=== PATIENT | male | born 2000 | race Caucasian/White ===

== ENCOUNTER 2020-01-11 11:17 | Emergency (ER) | payer BC ==
[2020-01-11 11:34] VITALS: BP 106/61
--- NOTE | 2020-01-11 11:39 | UC ---
Respiratory Complaint HPI - HPI Summary HPI Summary: 19yo male presenting with mother for dry cough and shortness of breath x2 days. Mother states "his lungs sound diminished and there is wheezing everywhere with crackles at lung bases." Patient denies chest pain. Does admit to wheezing. Denies URI symptoms. Denies fever, chills, body aches. Denies n/v. Has been using his inhaler a few times a day and nebulizer twice yesterday. Patient has a h/o asthma. Also notes having pneumonia and bronchitis in the past. Mother states "his primary usually gives him steroids and a z isaias." Nonsmoker - History of Current Complaint Stated Complaint: CONGESTION COUGH Hx Obtained From: Patient, Family/Reimbursement Rep - mother Pain Intensity: 0 - Allergies/Home Medications Allergies/Adverse Reactions: Allergies Allergy/AdvReac Type Severity Reaction Status Date / Time No Known Allergies Allergy Verified 01/11/20 11:30 Home Medications: Home Medications Albuterol HFA INHALER* [Ventolin HFA Inhaler*] 2 inh PO Q4H PRN 10/01/13 [ History Confirmed 01/11/20] Albuterol 2.5MG/3ML (0.083%)* [Ventolin 2.5 MG/3 ML NEB.JESIKA*] 2.5 mg INH Q4H PRN 01/11/20 [History Confirmed 01/11/20] Albuterol 2.5MG/3ML (0.083%)* [Ventolin 2.5 MG/3 ML NEB.JESIKA*] 2.5 mg INH Q6H PRN #25 vial 01/11/20 [Rx] Albuterol HFA INHALER* [Ventolin HFA Inhaler*] 2 puff INH Q4H PRN #1 mdi [Rx] Azithromyxin ISAIAS (NF) [Z-Isaias (Zithromax) 250 mg tabs #6] 2 tab PO .TODAY, THEN 1 DAILY #6 tab 01/11/20 [Rx] predniSONE 20 mg TAB [Deltasone 20 MG TAB*] 40 mg PO DAILY #10 tab 01/11/20 [Rx] PMH/Surg Hx/FS Hx/Imm Hx Respiratory History: Asthma, Bronchitis, Pneumonia - Surgical History Surgical History: Yes Surgery Procedure, Year, and Place: ear tubes, left leg surgery-2015. R wrist surgery - Family History Known Family History: Positive: Non-Contributory - Social History Alcohol Use: Occasionally Substance Use Type: None Smoking Status (MU): Never Smoked Tobacco - Immunization History Vaccination Up to Date: Yes Review of Systems All Other Systems Reviewed And Are Negative: Yes Constitutional: Positive: Negative ENT: Positive: Negative Respiratory: Positive: Shortness Of Breath, Cough, Other - wheezing Cardiovascular: Positive: Negative Gastrointestinal: Positive: Negative Musculoskeletal: Positive: Negative Neurological/Mental Status: Positive: Negative Physical Exam - Summary Physical Exam Summary: Vital Signs Reviewed: Yes A+Ox3, no distress, well-appearing Eyes: Conjunctiva Clear ENT: Hearing grossly normal, TM x 2 clear, moist, uvula midline, no exudate, no erythema Neck: Positive: Supple Respiratory: Positive: No respiratory distress, No accessory muscle use, + expiratory wheezing throughout lung [place], no rales/rhonchi Cardiovascular: RRR nl s1, s2 no m/r Musculoskeletal Exam: CERDA x 4 without difficulty Neurological: Positive: Alert Psychological: Positive: age appropriate behavior Skin: Positive: no rash, no ecchymosis Vital Signs: Initial Vital Signs Temp 98.1 F 01/11/20 11:28 Pulse 84 01/11/20 11:28 Resp 17 01/11/20 11:28 BP 106/61 01/11/20 11:28 Pulse Ox 96 01/11/20 11:28 Respiratory Course/Dx - Course Course Of Treatment: Patient well-appearing and in no respiratory distress. I discussed asthma exacerbation with patient and mother. I recommended treatment with short course of prednisone and continued use of inhaler and nebulizer as needed. Mother states she "feels much more comfortable with himn being given a z isaias as well because combined with steroids, it always make him better within a few days." Patient agreed with this plan, so I provided with prescription for z isaias as well. He also viced needing albuterol nebs and inhaler refills so I sent those prescriptions. I instructed to go to the ED with any new or worsening symptoms. Patient and mother voiced understanding and agreed with treatment plan. - Differential Dx/Diagnosis Differential Diagnosis/HQI/PQRI: Asthma, Bronchitis, Lower Resp Infection Provider Diagnosis: Asthma exacerbation Discharge ED - Sign-Out/Discharge Documenting (check all that apply): Patient Departure All imaging exams completed and their final reports reviewed: No Studies - Discharge Plan Condition: Stable Disposition: HOME Prescriptions: Albuterol 2.5MG/3ML (0.083%)* [Ventolin 2.5 MG/3 ML NEB.JESIKA*] 2.5 mg INH Q6H PRN #25 vial PRN Reason: Sob/Wheezing Albuterol HFA INHALER* [Ventolin HFA Inhaler*] 2 puff INH Q4H PRN #1 mdi PRN Reason: Sob/Wheezing Azithromyxin ISAIAS (NF) [Z-Isaias (Zithromax) 250 mg tabs #6] 2 tab PO .TODAY, THEN 1 DAILY #6 tab predniSONE 20 mg TAB [Deltasone 20 MG TAB*] 40 mg PO DAILY #10 tab Patient Education Materials: Asthma (ED) Referrals: Jermaine Gonzalez [Primary Care Provider] - If Needed Additional Instructions: Take the prednisone and z isaias as prescribed. Continue with your inhaler and nebulizer as needed for shortness of breath and wheezing. Follow up with your primary care provider if symptoms persist. Go to the emergency room if symptoms worsen. - Billing Disposition and Condition Condition: STABLE Disposition: Home
== END 2020-01-11 12:00 | disposition home or self-care (01) ==
LOC: UCCORT 11:17
DX: J45.901 Unspecified asthma with (acute) exacerbation (principal); Z79.52 Long term (current) use of systemic steroids; Z87.01 Personal history of pneumonia (recurrent)
CPT/HCPCS: 99212; G0463